=== PATIENT | female | born 1930 | race African-American/Black ===

== ENCOUNTER 2020-08-20 08:34 | Day surgery (SDC) | payer OTHER ==
[2020-08-19 12:48] VITALS: BMI 25.6
[2020-08-20] MEDS ORDERED: PROPOFOL 20 ML ONE ×4 (10:17)
[2020-08-20 12:24] VITALS: BP 148/72; PULSE 71; TEMP 98
== END 2020-08-20 11:15 | disposition home or self-care (01) ==
LOC: FASU-ENDO 08:34
PROVIDERS: ATTEND Internal Medicine Gastroenterology
PROC: 0DB68ZX Excision of Stomach, Via Natural or Artificial Opening Endoscopic, Diagnostic (ICD-10-PCS; 2020-08-20)
PROC: 0DB98ZX Excision of Duodenum, Via Natural or Artificial Opening Endoscopic, Diagnostic (ICD-10-PCS; principal; 2020-08-20 10:22)
DX: K31.7 Polyp of stomach and duodenum (principal); K44.9 Diaphragmatic hernia without obstruction or gangrene; K29.60 Other gastritis without bleeding; K92.1 Melena
CPT/HCPCS: 88305-TC